=== PATIENT | female | born 1975 | race American Indian/Alaskan Native ===

== ENCOUNTER 2019-04-12 08:35 | Outpatient (CLI) | payer OTHER ==
--- NOTE | 2019-04-12 09:24 | XRay Report ---
AP AND LATERAL LUMBOSACRAL SPINE: History: Chronic pain radiating to leg, broken back, lumbar fusion. The vertebral bodies are well mineralized and normal in alignment and vertebral height with well preserved interspace distances. The visualized portions of the posterior elements are normal. No evidence for surgical changes. IMPRESSION: Lumbar spine within normal limits.
== END 2019-04-12 08:36 | disposition home or self-care (01) ==
LOC: XRAY 08:35
PROVIDERS: ATTEND Internal Medicine
DX: Z02.71 Encounter for disability determination (principal); M43.26 Fusion of spine, lumbar region
CPT/HCPCS: 72100